=== PATIENT | male | born 1965 | race Caucasian/White ===

== ENCOUNTER 2017-10-06 07:59 | Emergency (ER) | payer MEDICAID, BC ==
[2017-10-06] MEDS: IBUPROFEN 800 MG TAB PO (09:01)
[2017-10-06] MEDS: AMOXICILLIN 500 MG CAP PO (09:01)
== END 2017-10-06 11:04 | disposition home or self-care (01) ==
LOC: E/R 07:59
DX: H66.91 Otitis media, unspecified, right ear (principal); I10 Essential (primary) hypertension; E11.9 Type 2 diabetes mellitus without complications; Z79.4 Long term (current) use of insulin
CPT/HCPCS: 71045; 87400; 99284-25

== ENCOUNTER 2019-02-21 12:12 | Emergency (ER) | payer OTHER, MEDICAID ==
[2019-02-21] MEDS: KETOROLAC 60 MG INJ IM (13:53)
== END 2019-02-21 15:06 | disposition home or self-care (01) ==
LOC: FTE 12:12
DX: M79.604 Pain in right leg (principal); I10 Essential (primary) hypertension; E11.9 Type 2 diabetes mellitus without complications; Z79.4 Long term (current) use of insulin
CPT/HCPCS: 93971; 96372; 99285-25